=== PATIENT | female | born 1985 | race Caucasian/White ===

== ENCOUNTER 2017-09-21 20:36 | Emergency (ER) | payer OTHER, MEDICAID ==
[~2017-09-21] VITALS: Ht 165.1 cm; Wt 138.0 kg
[2017-09-21 20:40] VITALS: BP 136/77; PULSE 78; RESP 20; TEMP 98.4; O2SAT 98
[2017-09-21] MEDS ORDERED: BIRTH CONTROL (20:52)
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
== END 2017-09-21 22:55 | disposition home or self-care (01) ==
LOC: PHEFT 20:36
DX: S49.92XA Unspecified injury of left shoulder and upper arm, initial encounter (principal); V49.49XA Driver injured in collision with other motor vehicles in traffic accident, initial encounter
CPT/HCPCS: 73030; 99283

== ENCOUNTER 2017-10-30 21:51 | Emergency (ER) | payer OTHER ==
[~2017-10-30] VITALS: Ht 165.1 cm; Wt 136.5 kg
[~2017-10-30 21:51] MED LIST: BIRTH CONTROL
[2017-10-30 22:16] VITALS: BP 119/81; PULSE 82; RESP 12; TEMP 98.8; O2SAT 97
--- NOTE | 2017-10-31 01:12 | PD ---
HPI Chief Complaint: Lump, Cyst, Hernia Time Seen by Provider: 01:05 Travel History International Travel<30 days: No Contact w/Intl Traveler<30days: No Traveled to known affect area: No History of Present Illness HPI 32-year-old female with right breast mass and tenderness intermittent over the past 2 months no prior history of fibrocystic breast disease no redness no induration no peau d'orange and no nipple discharge no fever no chills no trauma no axillary tenderness or lymphadenopathy. Patient rates pain as moderate to severe. Patient is not taking any medication for her symptoms. Patient does not have a primary care provider or campus monitor. Patient denies any family history of breast cancer. Patient rates pain 8/10 in intensity. Patient denies . No chest pain no pleuritic chest pain no shortness of breath no tobaccoism no control pills. PFSH Past Medical History Narrative Medical Cholecystectomy tubal ligation Cancer: No Diminished Hearing: No Psychiatric: Yes (HX ADHD) Immunizations Current: Yes Seizures: No Thyroid Disease: No Ulcer: No Tetanus Vaccination: < 5 Years ?: Unknown LMP: 08/2017 : 2 Para: 1 Miscarriage: 1 Past Surgical History Cholecystectomy: Yes Social History Alcohol Use: No Tobacco Use: No Substance Use: No Allergies-Medications (Allergen,Severity, Reaction): Coded Allergies: No Known Allergies (Verified Allergy, Unknown, 09/21/17) Reported Meds & Prescriptions Reported Meds & Active Scripts Active Reported [ Control] Review of Systems Except as stated in HPI: all other systems reviewed are Neg Physical Exam Narrative GENERAL: Well-developed well-nourished female in no acute distress no respiratory distress SKIN: Warm and dry. HEAD: Normocephalic. EYES: No scleral icterus. No injection or drainage. NECK: Supple, trachea midline. No JVD or lymphadenopathy. CARDIOVASCULAR: Regular rate and rhythm without murmurs, gallops, or rubs. Chest wall: Attention right breast fibrocystic breast changes no palpable mass positive tenderness no redness no induration no peau d'orange no nipple discharge no right axillary lymphadenopathy no ecchymosis no abrasion no induration no fluctuance no pointing. RESPIRATORY: Breath sounds equal bilaterally. No accessory muscle use. GASTROINTESTINAL: Abdomen soft, non-tender, nondistended. MUSCULOSKELETAL: No cyanosis, or edema. BACK: Nontender without obvious deformity. No CVA tenderness. Data Data Last Documented VS Vital Signs Date Time Temp Pulse Resp B/P (MAP) Pulse Ox O2 Delivery O2 Flow Rate FiO2 10/31/17 00:21 20 10/30/17 22:16 98.8 82 119/81 (94) 97 Orders Orders Ed Discharge Order (10/31/17 01:05) Mandatory Outpatient Referral (10/31/17 01:05) MDM Medical Decision Making Medical Screen Exam Complete: Yes Emergency Medical Condition: Yes Medical Record Reviewed: Yes Differential Diagnosis Fibrocystic breast changes, mass, abscess Narrative Course Palpable tenderness of the right upper outer quadrant of the right breast without palpable mass induration fluctuance increased warmth with reproducible tenderness no nipple discharge no peau d'orange; afebrile stable vital signs no pleuritic chest pain no chest pain no shortness breath no hemoptysis patient needs a mammogram and will order outpatient mammogram and is encouraged follow- up with primary care provider/[facility] mandatory referral for [facility] as patient has no primary care provider or resources. Diagnosis Primary Impression: Breast pain in female Referrals: [facility] call for appointment Patient Instructions: General Instructions Additional Instructions: Follow-up with campus monitor Obtain outpatient mammogram Basic ibuprofen or acetaminophen per package directions for fever or for pain Return to the emergency department for a concerns or change in condition May apply warm moist compresses to area Disposition: 01 DISCHARGE HOME Condition: Stable Lauren Hendricks MD Oct 31, 2017 01:12
== END 2017-10-31 02:27 | disposition home or self-care (01) ==
LOC: PHED 21:51
DX: N64.4 Mastodynia (principal); F90.9 Attention-deficit hyperactivity disorder, unspecified type
CPT/HCPCS: 99282